=== PATIENT | male | born 1985 | race Asian ===

== ENCOUNTER 2019-04-10 13:07 | Emergency (ER) | payer SELFPAY ==
[~2019-04-10] VITALS: Ht 172.7 cm; Wt 86.4 kg
[~2019-04-10 13:07] MED LIST: DIVA-78 PO; QUET200T PO; QUET25TA PO; SERT50TA12 PO
[2019-04-10 14:50] VITALS: BP 145/87
== END 2019-04-10 15:12 | disposition home or self-care (01) ==
LOC: EMS 13:07
DX: R76.11 Nonspecific reaction to tuberculin skin test without active tuberculosis (principal); I10 Essential (primary) hypertension; F32.9 Major depressive disorder, single episode, unspecified; F17.210 Nicotine dependence, cigarettes, uncomplicated; F15.90 Other stimulant use, unspecified, uncomplicated
CPT/HCPCS: 99406

== ENCOUNTER 2024-03-07 12:34 | Emergency (ER) | payer OTHER ==
[~2024-03-07] VITALS: Ht 172.7 cm; Wt 86.8 kg
[2024-03-07 12:36] VITALS: TEMP 98.3
[2024-03-07] MEDS ORDERED: ARIP10TA38 PO (12:42)
[2024-03-07] MEDS ORDERED: SERT-158 PO (12:42)
[2024-03-07] MEDS ORDERED: BUPR1TAB46 SL (12:42)
[2024-03-07] MEDS ORDERED: MIRT-149 PO (12:42)
[2024-03-07 14:00] LABS: EOSINOPHILS % (AUTO) 5.1 % (1.0-6.0); HEMOGLOBIN 13.8 g/dL (13.5-17.5); LYMPHOCYTES # (AUTO) 2.3 K/uL (1.0-4.8); LYMPHOCYTES % (AUTO) 25.2 % (22.0-44.0); MEAN CORPUSCULAR HEMOGLOBIN 28.8 pg (26.0-34.0); MEAN CORPUSCULAR HGB CONC 32.8 G/dL (31.0-37.0); MEAN CORPUSCULAR VOLUME 88 fL (80-100); MONOCYTES # (AUTO) 0.5 K/uL (0.1-1.0); MONOCYTES % (AUTO) 5.7 % (2.0-9.0); NEUTROPHILS # (AUTO) 5.7 K/uL (1.8-7.7); PLATELET COUNT (AUTO) 299 K/uL (150-450); RED BLOOD CELL COUNT(AUTO) 4.78 MIL/uL (4.50-5.90); RED CELL DISTRIBUTION WIDTH 12.7 % (11.5-14.5)
[2024-03-07 14:11] LABS: ANION GAP 8 mmol/L (8-16); CARBON DIOXIDE 28 mmol/L (22-29); CHLORIDE 103 mmol/L (98-107); CREATININE 0.98 mg/dL (0.60-1.30); GLOMERULAR FILTR. RATE CALC > 60 mL/min (>60); GLUCOSE,RANDOM 123 mg/dL (70-110); POTASSIUM 3.7 mmol/L (3.5-5.1); SODIUM SERUM 139 mmol/L (136-145); UREA NITROGEN, BLOOD 15 mg/dL (7-18)
[2024-03-07] MEDS: SODIUM CHLORIDE 0.9% 1,000 ML IV ONE (15:30)
[2024-03-07] MEDS: DiphenhydrAMINE HCL 50 MG/ML VIAL IVP ONE (15:31)
[2024-03-07 17:01] VITALS: BP 135/88; PULSE 92; RESP 13
[2024-03-07] MEDS ORDERED: BENZ2TAB71 PO (22:15)
== END 2024-03-07 17:24 | disposition home or self-care (01) ==
LOC: EMS 12:43
DX: R47.81 Slurred speech (principal); T43.225A Adverse effect of selective serotonin reuptake inhibitors, initial encounter; F32.A Depression, unspecified; I10 Essential (primary) hypertension; F17.210 Nicotine dependence, cigarettes, uncomplicated; F15.90 Other stimulant use, unspecified, uncomplicated
CPT/HCPCS: 99285; 96374; 70450; 96361; 80048; 82962; 85025; 36415; 93005; J1200; J7030

== ENCOUNTER 2024-03-07 20:20 | Emergency (ER) | payer OTHER ==
[~2024-03-07] VITALS: Ht 172.7 cm; Wt 87.0 kg
[~2024-03-07 20:20] MED LIST changes: +ARIP10TA38 PO; +BUPR1TAB46 SL; -DIVA-78 PO; +MIRT-149 PO; -QUET200T PO; -QUET25TA PO; +SERT-158 PO; -SERT50TA12 PO
[2024-03-07 20:24] VITALS: BP 135/85; PULSE 95; RESP 20; TEMP 98.5
[2024-03-07] MEDS: BENZTROPINE MESYLATE 1 MG/ML 2 ML VIAL IM ONE (21:07)
[2024-03-07] MEDS ORDERED: BENZ2TAB71 PO (22:15)
== END 2024-03-07 22:20 | disposition home or self-care (01) ==
LOC: EMS 20:22
DX: T50.995A Adverse effect of other drugs, medicaments and biological substances, initial encounter (principal); F32.A Depression, unspecified; I10 Essential (primary) hypertension; F17.210 Nicotine dependence, cigarettes, uncomplicated; F15.90 Other stimulant use, unspecified, uncomplicated; Y92.89 Other specified places as the place of occurrence of the external cause
CPT/HCPCS: 99283; 96372; J0515